=== PATIENT | male | born 1950 | race Hispanic/Latino ===

== ENCOUNTER → 2024-01-10 | Outpatient (CLI) | payer OTHER ==
[2024-01-10 22:00] VITALS: PULSE 115; RESP 12
[2024-01-10 22:52] VITALS: PULSE 115; RESP 12
[2024-01-10 23:08] VITALS: PULSE 125; RESP 14
[2024-01-10 23:33] VITALS: PULSE 58; RESP 14
[2024-01-10 23:59] VITALS: PULSE 123; RESP 12
[2024-01-11] VITALS (10 sets, daily range): PULSE 92–130; RESP 12–16
== END | disposition home or self-care (01) ==
LOC: SLP 19:45
PROVIDERS: ATTEND Family Medicine
DX: G47.33 Obstructive sleep apnea (adult) (pediatric) (principal)
CPT/HCPCS: 95810